=== PATIENT | female | born 1985 ===

== ENCOUNTER 2018-04-29 15:01 | Emergency (ER) | payer SELFPAY ==
[2018-04-29] MEDS ORDERED: Ketorolac Tromethamine 60 MG/2 ML VIAL ONE (15:27)
== END 2018-04-29 15:56 | disposition home or self-care (01) ==
LOC: ERS 15:01
DX: M25.561 Pain in right knee (principal); F41.9 Anxiety disorder, unspecified; F32.9 Major depressive disorder, single episode, unspecified; Z79.899 Other long term (current) drug therapy
CPT/HCPCS: 96372; J1885